=== PATIENT | female | born 1965 | race Caucasian/White ===

== ENCOUNTER → 2016-06-29 | Outpatient (CLI) | payer BC ==
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
== END ==
LOC: FIMAGING 12:26
PROVIDERS: ATTEND Internal Medicine
DX: S13.4XXA Sprain of ligaments of cervical spine, initial encounter (principal); R93.8 Abnormal findings on diagnostic imaging of other specified body structures; V89.9XXA Person injured in unspecified vehicle accident, initial encounter

== ENCOUNTER → 2016-07-08 | Outpatient (CLI) | payer BC ==
--- NOTE | 2016-07-08 19:41 | MR ---
MRI Cervical Spine (Without Contrast) History: M50.90-CERVICAL DISC DISORDER, UNSPECIFIED, UNSPECIFIED CERVICAL REGION. Technique: Sagittal T1, T2, axial T2, and 3-D gradient echo MR sequences of the cervical spine, with out contrast. Findings: Normal cervical alignment, without spondylolisthesis. Cervical vertebral bodies are norm al height, without compression fractures or spondylolisthesis. Cerebellar tonsils are in normal posi tion. Cervical spinal cord demonstrates normal signal, without cord edema or myelomalacia. C2-C3: No disk herniation or stenosis. C3-C4: No disk herniation or stenosis. C4-C5: No disk herniation or stenosis. C5-C6: Left paramedian dorsal disk/osteophyte complex resulting in mild central canal stenosis, with out neural foraminal stenosis. C6-C7: No disk herniation or stenosis. C7-T1: No disk herniation or stenosis. Impression: 1. C5-C6: Mild central canal stenosis secondary to left paramedian dorsal disk/osteophyte complex. 2. Please see above findings at specific disk levels.
== END ==
LOC: FIMAGING 07:01
PROVIDERS: ATTEND Internal Medicine
DX: M25.78 Osteophyte, vertebrae (principal)

== ENCOUNTER 2016-08-29 09:10 | Emergency (ER) | payer BC ==
[2016-08-29] MEDS ORDERED: PROPARACAINE 0.5% 15 ML OPHT DROP ONE (09:23)
[2016-08-29 09:31] VITALS: BP 158/94; PULSE 80; RESP 18; TEMP 98.4; O2SAT 96
[2016-08-29] MEDS ORDERED: PROPARACAINE 0.5% 15 ML OPHT DROP LEFTEYE ONE (09:43)
[2016-08-29] MEDS ORDERED: OFLOXACIN 0.3% SOLN PREPACK OPHT.BTL TAKEHOME ONE (09:55)
--- NOTE | 2016-08-29 09:57 | UCPHY ---
H & P Patient Type: New Chief Complaint Nursing Narrative: LEFT EYE INJURY OCCURRED ON MONDAY WHEN BUNGEE CORD HIT EYE, NOW WITH CONTINUED BLURRED VISION AND PAIN TO EYE Time Seen by Provider: 08/29/16 09:46 HPI/ROS: CHIEF COMPLAINT: Eye injury HISTORY OF PRESENT ILLNESS: The patient is a 51-year-old female who comes to the Urgent Care complaining of injury to her left eye. She states that 2 days ago she was using a bungee cord when it snapped and hit her in the left eye. She has bruising to her upper eyelid and lower eyelid. She has eye pain. No drainage or discharge. No change in vision. she was wearing contacts at the time. REVIEW OF SYSTEMS: Constitutional: denies: chills, fever, recent illness, recent injury EENTM: See HPI Respiratory: denies: cough, shortness of breath Cardiac: denies: chest pain, irregular heart rate, lightheadedness, palpitations Gastrointestinal/Abdominal: denies: abdominal pain, diarrhea, nausea, vomiting, blood streaked stools Genitourinary: denies: dysuria, frequency, hematuria, pain Musculoskeletal: denies: joint pain, muscle pain Skin: denies: lesions, rash, jaundice, bruising Neurological: denies: headache, numbness, paresthesia, tingling, dizziness, weakness Hematologic/Lymphatic: denies: blood clots, easy bleeding, easy bruising Immunologic/allergic: denies: HIV/AIDS, transplant EXAM: GENERAL: Well-appearing, well-nourished and in no acute distress. HEAD: Atraumatic, normocephalic. EYES: The patient has a small corneal abrasion to the nasal aspect of her cornea. Partially healed. No significant injection or drainage. Negative Velma sign ENT: TMs normal, nares patent, oropharynx clear without exudates. Moist mucous membranes. NECK: Normal range of motion, supple without lymphadenopathy or JVD. LUNGS: Breath sounds clear to auscultation bilaterally and equal. No wheezes rales or rhonchi. HEART: Regular rate and rhythm without murmurs, rubs or gallops. ABDOMEN: Soft, nontender, normoactive bowel sounds. No guarding, no rebound. No masses appreciated. BACK: No CVA tenderness, no spinal tenderness, step-offs or deformities EXTREMITIES: Normal range of motion, no pitting or edema. No clubbing or cyanosis. NEUROLOGICAL: Cranial nerves II through XII grossly intact. Normal speech, normal gait. 5/5 strength, normal movement in all extremities, normal sensation PSYCH: Normal mood, normal affect. SKIN: Warm, dry, normal turgor, no visible rashes or lesions. Source: Patient - Medical/Surgical History Hx Asthma: No Hx Chronic Respiratory Disease: No Hx Diabetes: No Hx Cardiac Disease: No Hx Renal Disease: No Hx Cirrhosis: No Other PMH: HTN, SEIZURE, BRAIN TUMOR, DIABETES - Family History Significant Family History: No pertinent family hx - Social History Smoking Status: Never smoked Alcohol Use: Sober Drug Use: None Constitutional: Initial Vital Signs Temperature (C) 36.9 C 08/29/16 09:28 Heart Rate 80 08/29/16 09:28 Respiratory Rate 18 08/29/16 09:28 Blood Pressure 158/94 H 08/29/16 09:28 O2 Sat (%) 96 08/29/16 09:28 O2 Delivery Mode Room Air Allergies/Adverse Reactions: phenytoin [From Dilantin] Allergy (Verified 08/29/16 09:27) Home Medications: Medication Instructions Recorded Htn Med 08/29/16 Metformin HCl 08/29/16 Ofloxacin 0.3% [Ocuflox 0.3%] 2 drops OP QID #1 opht.btl 08/29/16 Seizure Med 08/29/16 Medical Decision Making ED Course/Re-evaluation: Patient has a corneal abrasion on exam. I will start her on Ocuflox eyedrops. Have her follow up with Ophthalmology. She understands and agrees with this plan. She declines any further workup or testing at this time. Differential Diagnosis: Partial list of the Differential diagnosis considered include but were not limited to; corneal abrasion, perforation, traumatic iritis, contusion and although unlikely based on the history and physical exam, I also considered fracture, perforated globe, foreign body . I discussed these differential diagnoses and the plan with the patient as well as the usual and expected course. The patient understands that the diagnosis is provisional and that in medicine we are not always correct and that further workup is often warranted. Usual and customary warnings were given. All of the patient's questions were answered. The patient was instructed to return to the emergency department should the symptoms at all worsen or return, otherwise to followup with the physician as we discussed. - Data Points Medications Given: Discontinued Medications Diphtheria/Tetanus/Acell Pertussis (Boostrix) 0.5 ml IM .ONCE ONE Stop: 08/29/16 10:04 Last Admin: 08/29/16 10:05 Dose: 0.5 ml Ofloxacin (Ocuflox 0.3% Opht Drops Prepack) 1 btl TAKEHOME EDNOW ONE Stop: 08/29/16 09:56 Last Admin: 08/29/16 10:08 Dose: Not Given Proparacaine HCl (Alcaine 0.5%) 1 drops LEFTEYE ONCE ONE Stop: 08/29/16 09:44 Last Admin: 08/29/16 09:51 Dose: 1 btl Departure - Departure Disposition: Home, Routine, Self-Care Clinical Impression: Corneal abrasion Qualifiers: Encounter type: initial encounter Laterality: left Qualified Code(s): S05.02XA - Injury of conjunctiva and corneal abrasion without foreign body, left eye, initial encounter Condition: Fair Instructions: Corneal Abrasion (ED) Additional Instructions: Use the eyedrops 2 drops every 4 hours for 4 days. Referrals: Anneliese Cantor MD [Primary Care Provider] - As per Instructions Mesfin Castañeda [Medical Doctor] - As per Instructions Prescriptions: Ofloxacin 0.3% [Ocuflox 0.3%] 2 drops OP QID #1 opht.btl - PQRS PQRS Measurement: Not applicable
[2016-08-29] MEDS ORDERED: TDAP ADULT 0.5 ML INJ (BOOSTRIX) IM ONE (10:03)
== END 2016-08-29 10:05 | disposition home or self-care (01) ==
LOC: CED 09:10
DX: S05.02XA Injury of conjunctiva and corneal abrasion without foreign body, left eye, initial encounter (principal); W20.8XXA Other cause of strike by thrown, projected or falling object, initial encounter
CPT/HCPCS: 99204-PO; G0463-PO

== ENCOUNTER → 2017-06-07 | Outpatient (CLI) | payer BC | LOC: FIMAGING 17:26 | PROVIDERS: ATTEND Family Medicine | DX: K59.00 Constipation, unspecified (principal) ==

== ENCOUNTER → 2017-06-07 | Outpatient (CLI) | payer BC ==
[~2017-06-07] MED LIST: GADOBUTROL 10 ML VIAL IVP ONE
== END ==
LOC: FIMAGING 10:18
PROVIDERS: ATTEND Psychiatry & Neurology Neurology
DX: D32.9 Benign neoplasm of meninges, unspecified (principal); G93.9 Disorder of brain, unspecified
CPT/HCPCS: A9585

== ENCOUNTER → 2018-03-22 | Outpatient (CLI) | payer BC | LOC: FIMAGING 17:02 | PROVIDERS: ATTEND Family Medicine | DX: M25.571 Pain in right ankle and joints of right foot (principal); M54.42 Lumbago with sciatica, left side ==

== ENCOUNTER → 2018-03-28 | Outpatient (CLI) | payer BC | LOC: FIMAGING 06:51 | PROVIDERS: ATTEND Obstetrics & Gynecology | DX: N83.291 Other ovarian cyst, right side (principal); D25.0 Submucous leiomyoma of uterus ==

== ENCOUNTER → 2018-07-27 | Outpatient (CLI) | payer BC | LOC: FIMAGING 07:12 ==